=== PATIENT | female | born 1960 | race Caucasian/White ===

== ENCOUNTER 2018-09-13 16:25 | Inpatient (IN) | payer OTHER ==
[~2018-09-13] VITALS: Ht 160 cm; Wt 95.3 kg
[2018-09-13 16:36] VITALS: BP 103/52
[2018-09-13 16:58] LABS: BASOPHILS 1.2 % (0.0-2.0); EOSINOPHILS 1.3 % (0.0-3.0); HEMATOCRIT 38.4 % (37.0-47.0); HEMOGLOBIN 13.2 gm/dL (12.0-15.0); LYMPHOCYTES 20.6 % (24.0-44.0); MCH 26.8 pg (26.0-34.0); MCHC 34.3 g/dL (28.0-37.0); MCV 78.3 fL (80.0-100.0); MONOCYTES 5.9 % (1.0-8.0); PLATELET COUNT 207 thou/uL (150-400); RBC 4.91 mil/uL (4.20-5.00); RDW 16.9 % (10.5-14.5); WBC 8.4 thou/uL (4.0-11.0)
[2018-09-13 17:11] LABS: ANION GAP 13 mmol/L (7-16); BUN 16 mg/dL (7-18); CALCIUM 9.5 mg/dL (8.5-10.1); CHLORIDE 98 mmol/L (98-107); CO2 25 mmol/L (21-32); CREATININE 1.2 mg/dL (0.6-1.0); GLUCOSE 236 mg/dL (74-106); POTASSIUM 4.2 mmol/L (3.5-5.1); SODIUM 136 mmol/L (136-145)
[2018-09-13 17:22] LABS: SGOT 22 U/L (15-37); SGPT 19 U/L (30-65); TOTAL BILIRUBIN 0.7 mg/dL (<0.1-1.0); TOTAL PROTEIN 8.1 g/dL (6.4-8.2); TROPONIN-I <0.06 ng/mL (<0.06)
[2018-09-13 19:51] VITALS: BP 144/74
[2018-09-13 19:56] VITALS: BP 144/73
[2018-09-13 20:13] VITALS: BP 148/59
[2018-09-13] MEDS ORDERED: ALPRAZOLAM ER1 MG PO (20:22)
[2018-09-13] MEDS ORDERED: FLECAINIDE ACET50 M1 PO (20:23)
[2018-09-13] MEDS ORDERED: PROTONIX40 M1 PO (20:23)
[2018-09-13] MEDS ORDERED: CARDIZEM CD120 MG PO (20:24)
[2018-09-13] MEDS ORDERED: BRINTELLIX20 MG PO (20:25)
[2018-09-13] MEDS ORDERED: BENADRYL25 MG PO (20:25)
[2018-09-13 22:15] LABS: CHOLESTEROL 194 mg/dL (<200); HDL CHOLESTEROL 28 mg/dL (>40); TC:HDL 6.9 Ratio (Not establshd); TRIGLYCERIDE 568 mg/dL (<150); VLDL 114 mg/dL (<40)
[2018-09-13 22:19] LABS: SERUM ASSESSMENT Slight Lipemia
[2018-09-14 05:18] VITALS: BP 105/62
--- NOTE | 2018-09-14 05:23 | NUR ---
PATIENT ARRIVED ON THE FLOOR ON 09/13/18 AT 2030HRS. PATIENT WAS ALERT AND ORIENTED X 4. PATIENT HAS A STEADY GAIT AND IS UP AD STEPHANY. PATIENT WAS ORIENTED TO THE ROOM AND ADMIT ASSESSMENT WAS COMPLETED. THE NIGHT PROGRESSED, PT REQUESTED PAIN AND NAUSEA MEDS. PT WAS ABLE TO GET COMFORTABLE AND SLEEP PART OF THE NIGHT. PT HAS NO QUESTIONS OR CONCERNS AT THIS TIME.
[2018-09-14 05:27] LABS: ANION GAP 10 mmol/L (7-16); BUN 17 mg/dL (7-18); CALCIUM 8.6 mg/dL (8.5-10.1); CHLORIDE 101 mmol/L (98-107); CO2 27 mmol/L (21-32); CREATININE 1.3 mg/dL (0.6-1.0); GLUCOSE 143 mg/dL (74-106); POTASSIUM 3.9 mmol/L (3.5-5.1); SODIUM 138 mmol/L (136-145)
[2018-09-14 05:35] LABS: TROPONIN-I <0.06 ng/mL (<0.06)
[2018-09-14 07:30] VITALS: BP 117/61
[2018-09-14 09:31] LABS: URINE BILIRUBIN NEGATIVE (Negative); URINE BLOOD TRACE (Negative); URINE CLARITY CLEAR; URINE COLOR YELLOW; URINE GLUCOSE-RANDOM* NEGATIVE (Negative); URINE KETONES NEGATIVE (Negative); URINE LEUKOCYTES-REFLEX NEGATIVE (Negative); URINE NITRITE-REFLEX NEGATIVE (Negative); URINE PROTEIN (DIPSTICK) NEGATIVE (Negative); URINE SPECIFIC GRAVITY <= 1.005 (1.005-1.035); URINE UROBILINOGEN 0.2 E.U./dl (0.2-1.0)
--- NOTE | 2018-09-14 09:54 | 2DMMODE ---
[facility] [address] [place] [address] 2 D/M-MODE ECHOCARDIOGRAM Name: LYNN GORDON Room #: 453-P ADM IN .R.#: [id number] ������������� Admission: 09/13/18 ������������� Attend Phys: Ed Antony Discharge: ��� ������������� ��� Date of : 60 Date of Service: 09/14/18 0954 �� Report #: [id number] �������� ��������������������������������������������[id number] THIS REPORT FOR: //name// APPROVED REPORT Study performed: 09/14/2018 09:20:12 EXAM: Comprehensive 2D, Doppler, and color-flow Echocardiogram Patient Location: Echo lab Room #: [facility] Status: routine BSA: 1.97 HR: 72 bpm BP: 117/61 mmHg Rhythm: NSR Other Information Study Quality: Adequate/low parasternal window Indications Atrial Fibrillation Chest Pain 2D Dimensions RVDd: 33.30 mm IVSd: 10.59 (7-11mm) LVOT Diam: 20.55 (18-24mm) LVDd: 44.38 mm PWd: 9.96 (7-11mm) LVDs: 28.63 (25-40mm) Aortic Root: 34.13 mm Volumes Left Atrial Volume (Systole) Single Plane 4CH: 30.70 mL Single Plane 2CH: 42.62 mL LA ESV Index: 19.00 mL/m2 Aortic Valve AoV Peak Royer.: 1.09 m/s AO Peak Gr.: 4.78 mmHg LVOT Max P.00 mmHg LVOT Max V: 1.00 m/s OBED Vmax: 3.03 cm2 Mitral Valve E/A Ratio: 1.2 MV Decel. Time: 241.45 ms [facility] [address] [place] [address] 2 D/M-MODE ECHOCARDIOGRAM Name: LYNN GORDON Room #: 453-P [facility] IN [facility].#: [id number] ������������� Admission: 09/13/18 ������������� Attend Phys: Ed Antony Discharge: ��� ������������� ��� Date of : 60 Date of Service: 09/14/18 0954 �� Report #: [id number] �������� ��������������������������������������������[id number] MV E Max Royer.: 0.78 m/s MV A Royer.: 0.64 m/s MV PHT: 70.02 ms IVRT: 114.19 ms Pulmonary Valve PV Peak Royer.: 0.84 m/s PV Peak Gr.: 2.84 mmHg Pulmonary Vein P Vein S: 0.43 m/s P Vein D: 0.43 m/s P Vein S/D Ratio: 1.00 Tricuspid Valve TR Peak Royer.: 2.08 m/s RAP Estimate: 5.00 mmHg TR Peak Gr.: 17.38 mmHg PA Pressure: 22.00 mmHg Left Ventricle The left ventricle is normal size. There is normal LV segmental wall motion. There is normal left ventricular wall thickness. Left ventricular systolic function is normal. LVEF is 55-60%. The left ventricular diastolic function is normal. Right Ventricle The right ventricle is normal size. The right ventricular systolic function is normal. Atria The left atrium size is normal. The right atrium size is normal. Aortic Valve The aortic valve is normal in structure. No aortic regurgitation is present. There is no aortic valvular stenosis. Mitral Valve The mitral valve is normal in structure. Mild mitral regurgitation. No evidence of mitral valve stenosis. Tricuspid Valve The tricuspid valve is normal in structure. Mild tricuspid regurgitation. Estimated PAP is 20-25mmHg. Pulmonic Valve Pulmonic valve is not well visualized. [facility] [place] [address] 2 D/M-MODE ECHOCARDIOGRAM Name: LYNN GORDON Room #: 453-P ADM IN M.R.#: [id number] ������������� Admission: 09/13/18 ������������� Attend Phys: Ed Antony Discharge: ��� ������������� ��� Date of : 60 Date of Service: 09/14/18 0954 �� Report #: [id number] �������� ��������������������������������������������[id number] [employer] The aortic root is normal in size. Ascending aorta is not well visualized. IVC is normal in size and collapses >50% with inspiration. Pericardium There is no pericardial effusion. <Conclusion> Left ventricular systolic function is normal. There is normal LV segmental wall motion. LVEF is 55-60%. The aortic valve is normal in structure. No aortic regurgitation or stenosis The mitral valve is normal in structure. Mild mitral regurgitation. Mild tricuspid regurgitation. Estimated pulmonary artery pressure of 20-25mmHg. There is no pericardial effusion. ��������������������������������������������� <ELECTRONICALLY SIGNED> ���������������������������������������� By: Anthony Rasmussen MD, FAC ��������������������������������������������� 09/14/1854 3 Anthony Rasmussen MD, FACC /INF
--- NOTE | 2018-09-14 14:50 | NUR ---
PT ADMITTED RELATED TO CHEST PAIN, N/V, SOA. CM REVIEWED CHART AND SPOKE WITH CARE TEAM. CM MET WITH PT AT BEDSIDE THIS DAY. PT IS A&O X4. CM ROLE INTRODUCED. PT INDICATED SHE LIVES IN A HOUSE WITH HER SPOUSE, DTR, AND 2 GRANDKIDS WITH NO STEPS TO ENTER AND NO STEPS INSIDE. 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 PT INDICATED NO HH HX. PT INDICATED SHE PLANS TO RETURN HOME ONCE MEDICALLY STABLE. CM TO FOLLOW INDICATED WITH DC PLANNING.
[2018-09-14 15:22] VITALS: BP 132/69
--- NOTE | 2018-09-14 17:02 | EKG ---
[place] [address] [place] [address] ELECTROCARDIOGRAM REPORT Name: LYNN GORDON Room #: 453-P ADM IN M.R.#: [id number] ������������������ Admission: 09/13/18 ������������������ Attend Phys: Ed Weinstein Discharge: ������������������ Date of : 60 Report #: [id number] ����������������������������������������������������������������� [id number] THIS REPORT FOR: //name// [facility] ED Test Date: 2018-09-13 Test Time: 16:37:32 Pat Name: LYNN GORDON Department: Room: [facility] Gender: F Claim Technician: SUNNY : 1960 Requested By: Martita Becerra Order Number: [id number] MD: Anthony Rasmussen Measurements Intervals Onida Rate: 86 P: 70 WV: 147 QRS: -26 QRSD: 87 T: 60 QT: 355 QTc: 425 Interpretive Statements Sinus rhythm Borderline left axis deviation Baseline wander in lead(s) V5 Compared to ECG 02/22/1998 14:19:00 No significant changes Electronically Signed On 09-14-2018 17:02:16 CDT by Anthony Rasmussen [email or web address] ��������������������������������������������� <ELECTRONICALLY SIGNED> ���������������������������������������� By: Anthony Rasmussen MD, [facility] ��������������������������������������������� 09/14/18 1702 163 36 Anthony Rasmussen MD, [facility] /EPI
--- NOTE | 2018-09-14 17:07 | NUR ---
Received asleep on bed. Due medications given as prescribed. On Nothing per orem, advised. Patient for urine sample-specimen obtained and sent to lab. Patient with multiple drug allergies to unrecalled medication, patient's relative will bring medication list as handed over by shift production supervisor nurse. Patient complained of nausea and pain- due medication given as prescribed. Patient with IV at Right AC, noticed redness on site, venous access nurse called to have IV resited; With Normal saline at 80cc/hr, infusing well on new site at left forearm. Patient had echo today. Patient clock watching on Ondansetron and Fentanyl IV medication. Patient to have Nuclear medicine for stress test today. Pt informed regarding procedure. Nuclear medicine staff called up- procedure cancelled. Patient informed that she's not on NPO anymore-patient's meal tray given. Seen and examined by Dr. Weinstein, with Gastro referral-typing secretary informed regarding consult. Patient for EGD tomorrow, for NPO at midnight 09/15-advised patient; for consent. For troponin at 11pm today.
--- NOTE | 2018-09-14 17:10 | EKG ---
[place] [address] [place] [address] ELECTROCARDIOGRAM REPORT Name: LYNN GORDON Room #: 453-P ADM IN M.R.#: [id number] ������������������ Admission: 09/13/18 ������������������ Attend Phys: Ed Weinstein Discharge: ������������������ Date of : 60 Report #: [id number] ����������������������������������������������������������������� [id number] THIS REPORT FOR: //name// [facility] Test Date: 2018-09-14 Test Time: 07:58:12 Pat Name: LYNN GORDON Department: Room: 453 P Gender: F Deer Farmer: ARABELLA : 1960 Requested By: Sofía Candelario Order Number: [id number] MD: Anthony Rasmussen Measurements Intervals [place]rick Rate: 73 P: 76 ME: 165 QRS: -22 QRSD: 86 T: 58 QT: 402 QTc: 443 Interpretive Statements Sinus rhythm Abnormal R-wave progression, early transition Compared to ECG 02/22/1998 14:19:00 No significant changes Electronically Signed On 09-14-2018 17:10:38 CDT by Anthony Rasmussen [email or web address] ��������������������������������������������� <ELECTRONICALLY SIGNED> ���������������������������������������� By: Anthony Rasmussen MD, [facility] ��������������������������������������������� 09/14/18 1710 0758 [id number] Anthony Rasmussen MD, FACC /EPI
--- NOTE | 2018-09-14 19:01 | NUR ---
Nursing notes- Morning shift addendum Patient for EGD tomorrow, consent signed. Visited by relative today. Dr. Weinstein informed that patient has medication seeking behavior, clock watching Fentanyl and Ondansetron and requests to have it given together- Air Mail sent.
[2018-09-14 19:27] VITALS: BP 120/60
[2018-09-15 00:07] LABS: GLYCOHEMOGLOBIN (HGB A1C) 5.6 % (4.8-5.6)
[2018-09-15 04:00] VITALS: BP 131/73
--- NOTE | 2018-09-15 07:36 | NUR ---
Assumed care at 1845. Pt resting in bed. Still having left sided chest pain. Been giving her fentanyl. She has been NPO since midnight. EGD scheduled for this morning. VSS. AOX4. No identified needs at the moment. Will continue to monitor.
[2018-09-15 07:56] VITALS: BP 127/52
--- NOTE | 2018-09-15 13:57 | NUR ---
PT IS TO HAVE AN EGD THIS DAY. CM TO FOLLOW INDICATED WITH DC PLANNING.
[2018-09-15 14:58] VITALS: BP 126/64
--- NOTE | 2018-09-15 17:59 | NUR ---
TOWARDS POC PT A/O X4, VSS, AFEBRILE, NAUSEA AND PAIN MANAGED BY MEDS. PT HAD EGD THIS AM RESULTS ARE IN. PT IS SCHEDULED FOR GASTRIC EMPTYING STUDY. PT IS THREATENING TO LEAVE AMA RE; PAIN MEDICATION ISSUE, TABLET MAKING MACHINE OPERATOR WAS NOTIFIED. WILL CONTINUE TO MONITOR.
[2018-09-15 19:26] VITALS: BP 117/71
--- NOTE | 2018-09-16 01:38 | NUR ---
ASSUMED CARE AROUND 1900. AXOX4. PERSISTENT NON CARDIAC CHEST PAIN AND NAUSEA. TX PER MD ORDER. IN THE BEGINNING PT WANTED TO LEAVE AMA. INFORMED PT TO CALL US TO SIGN THE AMA FORM AND HAVE THE IV TAKEN OUT BEFORE DEPARTURE. EVENTUALLY PT DENIDED NOT TO LEAVE AND PROCEED WITH NM GASTRIC EMPTYING STUDY IN AM. PT PUT ON NPO. NO S/S ACUTE DISTRESS NOTED OR REPORTED AT THIS TIME. WILL CONT TO MONITOR FOR ANY CHANGES IN CONDITION.
[2018-09-16 03:33] VITALS: BP 135/60
[2018-09-16 07:54] VITALS: BP 118/62
[2018-09-16] MEDS ORDERED: ASPIR 8181 MG PO (09:57)
[2018-09-16] MEDS ORDERED: CARDIZEM CD240 MG PO (09:57)
[2018-09-16] MEDS ORDERED: TAMBOCOR 100 M100 M1 PO (09:57)
--- NOTE | 2018-09-16 09:58 | EKG ---
[address] [place] [address] ELECTROCARDIOGRAM REPORT Name: LYNN GORDON Room #: 453-P ADM IN M.R.#: [id number] ������������������ Admission: 09/13/18 ������������������ Attend Phys: Ed Weinstein Discharge: ������������������ Date of : 60 Report #: [id number] ����������������������������������������������������������������� [id number] THIS REPORT FOR: //name// [facility] Test Date: 2018-09-16 Test Time: 07:54:10 Pat Name: LYNN GORDON Department: Room: 453 P Gender: F Technical Sales Director: ARABELLA : 1960 Requested By: Yadira Temple Order Number: [id number] MD: Anthony Rasmussen Measurements Intervals [place] Rate: 68 P: 63 [place]: 164 QRS: -34 QRSD: 83 T: 37 QT: 401 QTc: 427 Interpretive Statements Sinus rhythm Left axis deviation Compared to ECG 09/14/2018 07:58:12 Left-axis deviation now present Electronically Signed On 09-16-2018 9:58:18 CDT by Anthony Rasmussen [email or web address] ��������������������������������������������� <ELECTRONICALLY SIGNED> ���������������������������������������� By: Anthony Rasmussen MD, [facility] ��������������������������������������������� 09/16/18 [phone] Anthony Rasmussen MD, FACC /EPI
--- NOTE | 2018-09-16 13:06 | PATH ---
[facility] [address] [place] [address] PATHOLOGY RPT PROCEDURE Name: LYNN GORDON Room #: 453-P [facility] IN .R.#: [id number] ������������������ Admission: 09/13/18 ������������������ Date of : 60 Discharge: Report #: [id number] Path Case #: [id number] [facility] Accession Number: [id number] . 01 Material submitted: . stomach - BX GASTRITIS . 01 Clinical history: . Pre-op diagnosis: Non-cardiac chest pain, GERD Post-op diagnosis: Gastritis, healing gastric ulcer antrum . 02 Diagnosis: Gastric mucosa, gastritis rule out H. pylori, endoscopic biopsy: - Mild chronic gastritis with features of reactive gastropathy. - Negative for intestinal metaplasia or atrophy. - Negative for Helicobacter pylori (properly controlled immunohistochemical stain performed). (IUV:eloise; 09/16/2018) MBR/09/16/2018 . 02 Electronically signed: . Kenia Silvestre MD, Pathologist NPI- [id number] . 01 Gross description: . The specimen is received in formalin, labeled "Lynn Gordon, biopsy gastritis, R/O H. pylori". Received is are three segments of pale purcell soft tissue ranging in size from 0.3 to 0.4 cm in maximum dimensions. The specimen is submitted entirely in cassette A1. (CAA; 09/15/2018) QAC/QAC . 02 Pathologist provided ICD-10: K29.50, K31.9 . 02 CPT . 762622, O94861 Specimen Comment: A courtesy copy of this report has been sent to Specimen Comment: [phone], , . Specimen Comment: Report sent to ,DR WILSON / DR LIMON Performed at: [address] [id number] MD Christopher Ramirez MD Phone: [phone] Performed at: [address] [id number] [address] [address] PATHOLOGY RPT PROCEDURE Name: LYNN GORDON Room #: 453-P ADM IN M.R.#: [id number] ������������������ Admission: 09/13/18 ������������������ Date of : 60 Discharge: Report #: [id number] Path Case #: [id number] MD Kenia Silvestre MD Phone: [phone]
--- NOTE | 2018-09-16 14:28 | P ---
[facility] [place] [address] PROCEDURE REPORT Name: LYNN GORDON Room #: 453-P [facility] IN M.R.#: [id number] Admission: 09/13/18 ������������������ Attend Phys: Ed Weinstein Discharge: ������������������ Date of : 60 Report #: [id number] THIS REPORT FOR: //name// CC: SAMIRA Weinstein MD PATIENT OF: Dr. Weinstein and Dr. Lin. INDICATION FOR PROCEDURE: This patient has had noncardiac chest pain for the past year. It radiates into her back. It is associated with nausea and vomiting. The patient is a diabetic. She has been on diltiazem for her heart and this may be slowing her motility down. It is also possible that she may have diabetic gastroparesis. Informed consent for this procedure was obtained prior to the administration of any medication. The risks of the procedure, which include bleeding, perforation, infection, complications of sedation and the possibility I could miss something have been explained to the patient and she has indicated her consent by signing. DESCRIPTION OF PROCEDURE: Propofol was slowly titrated before and during this procedure for patient comfort by the Anesthesia service. The Olympus upper videoscope was introduced through the upper esophageal sphincter and advanced under direct visualization to the descending duodenum. Findings were noted on withdrawal of the scope. The duodenal mucosa appeared normal throughout its entirety down to the distal third portion of the duodenum. Pylorus, erythematous mucosa. Antrum, erythematous mucosa. There was a healing 3-4 mm white-based nonbleeding antral ulcer. There were several erosions in the antrum. Body, normal mucosa. Cardia and fundus, patchy erythema in the cardia and fundus of the stomach. Biopsies were obtained x 4 from the antrum and prepyloric area for histopathology. Retroflex view did not reveal any hiatal hernia. The scope was withdrawn into the esophagus. The Z-line was appropriately located at the top of the gastric folds and appeared normal. The esophageal mucosa appeared normal throughout its entirety. The scope was withdrawn. The patient went to the recovery area in stable condition. She tolerated the procedure well. IMPRESSION: 1. Normal-appearing esophagus with Z line appropriately located at the top of the gastric folds. 2. Antral gastritis with small ulceration that appeared to be healing, nonbleeding. Biopsies taken for histopathology. 3. Normal-appearing duodenum. It should also be noted that the patient had retained food in her stomach and in the duodenal bulb, which suggested that she may have diabetic gastroparesis. [address] [address] PROCEDURE REPORT Name: LYNN GORDON Room #: 453-P [facility] IN .R.#: [id number] Admission: 09/13/18 ������������������ Attend Phys: Ed Weinstein Discharge: ������������������ Date of : 60 Report #: [id number] My recommendations were for her to proceed to a gastric emptying study tomorrow morning. It is possible she will need a prokinetic like erythromycin or Reglan on a regular basis. I would recommend continuing the proton pump inhibitors. Diet as tolerated. Of note, the patient is on diltiazem, which may be slowing down her motility even further. If she can be switched to another antihypertensive or antiarrhythmic, that would be advisable with regard to her GI tract motility. Thank you very much once again for allowing me to participate in her care. ��������������������������������������������� <ELECTRONICALLY SIGNED> ���������������������������������������� By: Diana Berumen DO ��������������������������������������������� 09/16/18 1428 1200 2320 Diana Berumen DO /nt
--- NOTE | 2018-09-16 15:18 | NUR ---
Received asleep on bed. Due medications given as prescribed. With SL at left forearm. Patient complaining of nausea and pain, Ondansetron IV given as prescribed, Explained to patient that she has Tramadol as pain killer but insisted to have Fentanyl IV instead, explained to her that it is discontinued and she just had a one-time dose at 3am; patient not happy and want to inform Doctor that she wants Fentanyl IV- Dr Weinstein informed thru [facility]. Nuclear medicine called re: Gastric emptying studies for today, mentioned that patient was on NPO since midnight, had Fentanyl and Ondansetron IV at 3am- To reschedule procedure for tomorrow and emphasized that patient should not receive any anti-emetic or fentanyl from 8pm tonight- patient informed and angry about it, advised her she can eat and drink and still awaiting for reply from doctor regarding her IV painkillers, Pt. threatening to AMA- charge nurse informed. Seen and examined by Dr. Weinstein- will discharge patient today; patient informed, she'll wait for her to finish work then will be happy to be discharged. Discharge papers, prescription and drug care noted prepared. Dr. Berumen and ENRIQUE Landeros informed that Gastric Emptying study did not push thru today because of IV medications given at 3am and informed them about Dr. Weinstein's plan to discharge patient, agreed with discharge and just gave follow up schedule. Patient still angry and wanted to see a patient advocate. Eliza seen and talked to patient regarding her concerns. Patient on room air, ambulating independently. Asked for her Xanax, checked on eMAR, given as prescribed. ENRIQUE beatty called to ask for update on patient(Cardio) called her back and update given.
[2018-09-16 15:21] VITALS: BP 105/61
--- NOTE | 2018-09-16 18:51 | NUR ---
Patient's arrived at 6:30pm, discharge instructions, follow up schedule given. IV discontinued and removed. Heart monitor removed. Patient still requested to have IV Zofran prior to leaving, no signs of nausea. Medication not given to patient. Went down with .
--- NOTE | 2018-09-16 20:29 | NUR ---
PT'S CAME AND PICKED UP XANEX, STORED HOME MED. DECLINED TO COUNT. MED WAS HANDED TO SPOUSE.
== END 2018-09-16 18:49 | disposition home or self-care (01) | DRG 392 ==
LOC: ER 16:25 → EROBS 19:33 → 4W 19:33
PROVIDERS: Nurse Practitioner Family; Physician Assistant; ADMIT Hospitalist
PROC: 0DB68ZX Excision of Stomach, Via Natural or Artificial Opening Endoscopic, Diagnostic (ICD-10-PCS; principal; 2018-09-15)
DX: K29.60 Other gastritis without bleeding (principal); N17.9 Acute kidney failure, unspecified; K21.9 Gastro-esophageal reflux disease without esophagitis; F41.9 Anxiety disorder, unspecified; R91.1 Solitary pulmonary nodule; J44.9 Chronic obstructive pulmonary disease, unspecified; E11.9 Type 2 diabetes mellitus without complications; R51 Headache; G89.29 Other chronic pain; K25.9 Gastric ulcer, unspecified as acute or chronic, without hemorrhage or perforation; R07.89 Other chest pain; I48.0 Paroxysmal atrial fibrillation; Z88.6 Allergy status to analgesic agent; Z88.1 Allergy status to other antibiotic agents; Z88.2 Allergy status to sulfonamides; Z88.8 Allergy status to other drugs, medicaments and biological substances; Z88.0 Allergy status to penicillin; Z87.891 Personal history of nicotine dependence; Z79.82 Long term (current) use of aspirin; Z79.899 Other long term (current) drug therapy; Z86.19 Personal history of other infectious and parasitic diseases; Z90.49 Acquired absence of other specified parts of digestive tract; Z90.710 Acquired absence of both cervix and uterus; Z82.49 Family history of ischemic heart disease and other diseases of the circulatory system; Z79.1 Long term (current) use of non-steroidal anti-inflammatories (NSAID)
CPT/HCPCS: 10045; 62110; 62900